=== PATIENT | male | born 1955 | race Caucasian/White ===

== ENCOUNTER 2019-08-23 06:09 | Inpatient (IN) | payer OTHER, BC ==
[2019-08-19 17:11] VITALS: BMI 24.7
[2019-08-23] MEDS ORDERED: CEFAZOLIN 2 GM in DEXTROSE 5%-WATER - 100 ML IVPB ONE (06:55)
[2019-08-23] MEDS ORDERED: fentaNYL CITRATE 250 MCG/5 ML VIAL ONE (07:24)
[2019-08-23] MEDS ORDERED: MIDAZOLAM HCL 2 MG/2 ML SINGLE DOSE VIAL ONE ×2 (07:24)
[2019-08-23] MEDS ORDERED: PROPOFOL 20 ML ONE ×3 (07:27)
[2019-08-23] MEDS ORDERED: LIDOCAINE HCL/PF 2% SDV 5ML VIAL ONE (07:27)
[2019-08-23] MEDS ORDERED: LIDOCAINE HCL 2% JELLY (5 ML/TUBE) ONE (07:27)
[2019-08-23] MEDS ORDERED: ONDANSETRON 4 MG/2 ML VIAL ONE ×2 (07:28→12:25)
[2019-08-23] MEDS ORDERED: DEXAMETHASONE SOD PHOSPHATE 4 MG/1 ML VIAL ONE (07:28)
[2019-08-23] MEDS ORDERED: NEOSTIGMINE METHYLSULFATE 0.5 MG/1 ML - 10 ML MDV ONE ×2 (07:28)
[2019-08-23] MEDS ORDERED: BUPIVACAINE HCL/PF 0.5% (5 MG/ML) 30 ML VIAL IJ ONE ×2 (07:37→09:26)
[2019-08-23] MEDS ORDERED: BUPIVACAINE LIPOSOME/PF (EXPAREL) 266 MG/20 ML VIAL ONE ×2 (07:37→09:26)
[2019-08-23] MEDS ORDERED: VANCOMYCIN 1,000 MG VIAL (RESTRICTED TO ID ONLY) ONE (07:43)
[2019-08-23] MEDS ORDERED: GENTAMICIN SO4 80 MG/2 ML VIAL ONE (07:43)
[2019-08-23] MEDS ORDERED: LIDOCAINE 1%-EPI 1:100,000 30 ML MDV IJ ONE (07:43)
[2019-08-23] MEDS ORDERED: THROMBIN (BOVINE) 20,000 UNIT VIAL TP ONE (07:44)
--- NOTE | 2019-08-23 07:57 | HP ---
History & Physical Update - History History: No Change - Physical Physical: No Change - Assessment Assessment: No Change - Plan Plan: No Change (no changes since visit on 07/05/19)
[2019-08-23] MEDS ORDERED: morphine SULFATE/PF 0.5 MG/ML (2cc Syringe - QUVA) ONE (08:06)
[2019-08-23] MEDS ORDERED: VANCOMYCIN 1,000 MG VIAL (RESTRICTED TO ID ONLY) IVPB ONE ×2 (08:40→10:19)
[2019-08-23] MEDS ORDERED: ceFAZolin SODIUM 1 GM VIAL IVPB ONE (08:40)
[2019-08-23] MEDS ORDERED: LIDOCAINE 1%/EPI 1:100000 (50 ML MULTI DOSE VIAL) NR ONE (08:51)
[2019-08-23] MEDS ORDERED: GELATIN, ABSORBABLE 100 EACH SPONGE TP ONE (09:10)
[2019-08-23] MEDS ORDERED: THROMBIN (BOVINE) 5,000 UNIT VIAL TP ONE (09:10)
[2019-08-23] MEDS ORDERED: GENTAMICIN SO4 80 MG/2 ML VIAL IVPB ONE (10:12)
[2019-08-23] MEDS ORDERED: BACITRACIN 50,000 UNITS VIAL TP ONE ×2 (10:12→10:19)
[2019-08-23] MEDS ORDERED: HYDROGEN PEROXIDE 473 ML PO ONE (10:12)
[2019-08-23] MEDS ORDERED: HYDROmorphone HCl 2 MG/ML VIAL ONE (12:21)
[2019-08-23] MEDS ORDERED: GLYCOPYRROLATE 0.2 MG/1 ML VIAL ONE ×3 (12:24→12:25)
[2019-08-23] MEDS ORDERED: diphenhydrAMINE HCL 25 MG CAPSULE (FP) PO PRN (13:13)
--- NOTE | 2019-08-23 13:52 | OP ---
Operative Note - Note: Operative Date: 08/23/19 Pre-Operative Diagnosis: lumbar stenosis and instability Operation: L4-S1 laminectomies (Reoperative L5-S1) with trenapedicular approaches for interbody cages and arthordesis with L4-S1 posterior fusion. Post-Operative Diagnosis: Same as Pre-op Surgeon: Prem Ford Assistant Operator: Brittany Rodríguez Anesthesiologist/POTASH FLAKER: Nayana Butler Anesthesia: General, Spinal (duramorph), Local Estimated Blood Loss (mls): 800 Drains & Tubes with Location: GEMMA at right paravetebral Drains, Volume Out (mls): 350 (hart) Fluid Volume Replaced (mls): 2,000 Operative Report Dictated: Yes
[2019-08-23] MEDS ORDERED: DOCUSATE SODIUM 100 MG CAPSULE (FP) PO SCH (14:00)
[2019-08-23] MEDS ORDERED: PROMETHAZINE HCL 25 MG/1 ML VIAL ONE (14:00)
[2019-08-23] MEDS ORDERED: HYDROmorphone HCL 2 MG TABLET PO PRN (14:13)
[2019-08-23] MEDS ORDERED: ONDANSETRON 4 MG/2 ML VIAL IVPUSH PRN (14:13)
[2019-08-23] MEDS ORDERED: PROMETHAZINE HCL 25 MG/1 ML VIAL IVPUSH ONE (14:15)
[2019-08-23] MEDS: LACTATED RINGERS SOLUTION 1,000 ML/1,000 ML INFUS.BAG IV SCH (14:30)
[2019-08-23 17:06] LABS: BASO % 0.2 % (0-2.0); HEMATOCRIT 36.4 % (35.4-49); HEMOGLOBIN 12.8 GM/dL (11.7-16.9); LYMPH % 5.4 % (8-40); MCH 31.2 pg (25.7-33.7); MCHC 35.1 g/dl (32.0-35.9); MEAN CELL VOLUME 88.9 fl (80-96); MEAN PLT VOLUME 8.1 fl (7.5-11.1); NEUT % 88.4 % (42.8-82.8); PLATELET COUNT 199 K/MM3 (134-434); RBC 4.09 M/mm3 (4.00-5.60); RDW 13.7 % (11.9-15.9); WHITE BLOOD COUNT 15.9 K/mm3 (4.0-10.0)
[2019-08-23] MEDS ORDERED: CEFAZOLIN 1 GM/D5W 1 GM/50 ML BAG IVPB SCH (17:30)
[2019-08-23] MEDS: INSULIN SLIDING SCALE (NOVOLOG) 1 VIAL SQ SCH (17:43)
[2019-08-23] MEDS ORDERED: INSULIN (NOVOLOG) ASPART 100 UNITS/ML 10ML VIAL ONE ×4 (17:45→18:39)
[2019-08-23] MEDS ORDERED: ceFAZolin SODIUM 1 GM VIAL ONE (17:53)
[2019-08-23] MEDS ORDERED: DEXTROSE 5%-WATER - 50 ML IVPB ONE (17:53)
[2019-08-23] MEDS: CEFAZOLIN 1 GM in DEXTROSE 5%-WATER - 50 ML IVPB SCH (17:58)
[2019-08-23] MEDS: PREGABALIN 50 MG CAPSULE PO SCH ×2 (17:59→22:20)
[2019-08-23] MEDS: DOCUSATE SODIUM 100 MG CAPSULE (FP) PO SCH (22:19)
[2019-08-23] MEDS: metFORMIN HCL 500 MG TABLET (FP) PO SCH (22:19)
[2019-08-23] MEDS: EZETIMIBE 10 MG TABLET (FP) PO SCH (22:20)
[2019-08-23] MEDS: HEPARIN NA (PORCINE) 5,000 UNITS/ML 1ML VIAL SQ SCH (22:20)
[2019-08-23] MEDS: ATORVASTATIN CA 10 MG TABLET (FP) PO SCH (22:23)
[2019-08-24] MEDS ORDERED: DEXTROSE 5%-WATER - 50 ML IVPB ONE ×3 (02:37→16:17)
[2019-08-24] MEDS ORDERED: ceFAZolin SODIUM 1 GM VIAL ONE ×3 (02:37→16:17)
[2019-08-24] MEDS: CEFAZOLIN 1 GM in DEXTROSE 5%-WATER - 50 ML IVPB SCH ×3 (02:41→17:04)
[2019-08-24] MEDS: LACTATED RINGERS SOLUTION 1,000 ML/1,000 ML INFUS.BAG IV SCH ×3 (02:43→17:04)
[2019-08-24 06:07] LABS: HEMATOCRIT 32.3 % (35.4-49); HEMOGLOBIN 11.5 GM/dL (11.7-16.9); MCH 31.7 pg (25.7-33.7); MCHC 35.7 g/dl (32.0-35.9); MEAN CELL VOLUME 88.7 fl (80-96); MEAN PLT VOLUME 8.4 fl (7.5-11.1); PLATELET COUNT 207 K/MM3 (134-434); RBC 3.64 M/mm3 (4.00-5.60); RDW 13.9 % (11.9-15.9); WHITE BLOOD COUNT 17.8 K/mm3 (4.0-10.0)
[2019-08-24 06:29] LABS: CALCIUM 10.1 mg/dL (8.5-10.1); CREATININE 1.8 mg/dL (0.55-1.3); POTASSIUM 4.8 mmol/L (3.5-5.1)
[2019-08-24] MEDS: HEPARIN NA (PORCINE) 5,000 UNITS/ML 1ML VIAL SQ SCH ×3 (06:37→22:05)
[2019-08-24] MEDS: INSULIN SLIDING SCALE (NOVOLOG) 1 VIAL SQ SCH ×3 (06:38→17:04)
[2019-08-24] MEDS: PREGABALIN 50 MG CAPSULE PO SCH ×3 (06:53→22:04)
[2019-08-24] MEDS ORDERED: PT OWN MED DRAWER 7, Y5N ONE ×6 (07:32→16:17)
--- NOTE | 2019-08-24 08:19 | PN ---
Progress Note (short form) - Note Progress Note: NEUROSURGERY POD #1 s/p L4-S1 laminectomies (reoperative L5-S1) with transpedicular approaches for interbody cages and arthordesis with L4-S1 posterior fusion. Alert. Standing up in room with hands on joseph stands. States he been like like this for a couple of hours. Not because of back pain but due to urinary discomfort. Patient informs me that he has failed his trial of void three times since hart removed and had to be replaced. C/o of burning sensation to meatus. Most likely the urinary retention associated with Duramorph spinal administered prior too procedure. Dr. Reyes was notified and ordered a PSA. Other than that , states the back pain is controlled well. He has ambulated a little in his room. Denies and parasthesias, CP, palpitations, SOB or MACE. Last Vital Signs Temp Pulse Resp BP Pulse Ox 97.1 F L 120 H 22 H 96/71 100 08/24/19 05:00 08/24/19 07:40 08/24/19 07:40 08/24/19 07:40 08/24/19 07:00 TRENDS 08/23/19 08/23/19 08/24/19 15:53 15:56 07:05 GEMMA 60 200 Hart 300 400 CBC, BMP 08/24/19 05:20 08/24/19 05:20 PE Gen: mod discomfort due to urinary discomfort. Back: dressing c/d/i. no periwound erythema. no drainage. no hematoma Neuro: GMNVI bilat all extremities : hart to gravity (clear). No evidence of meatal injury indicating traumatic insertion LE: SCDs bilat Problem List - Problems (1) Lumbar spinal stenosis Assessment/Plan: POD #1 s/p L4-S1 laminectomies (Reoperative L5-S1) with trenapedicular approaches for interbody cages and arthordesis with L4-S1 posterior fusion. Difficulty voiding postop. Patient without h/o of BPH or voiding issues pre-op. Issue most likely attributed to pre-op duramorph spinal. GOALS FOR TODAY 1. OOB and ambulate w/ PT 2. Incentive Spirometer 3. Monitor/record GEMMA and Hart output 4. Possibly dc hart later this afternoon and attempt TOV - would hold off on obtaining Urology consult as retention most likely 2/2 spinal anasthesia and doens't have h/o urinary difficulty 5. Trend WBC (currently 17.6) 6. Finger Stick --> maintain tight glycemic control 7. Pain management per Anasthesia 8. IV ABX to cont while GEMMA drain remains in - most likely will be dc'd onrounds tomorrow 9. TLSO brace Above plan discussed with Dr. Ford and agrees Code(s): M48.061 - SPINAL STENOSIS, LUMBAR REGION WITHOUT NEUROGENIC SHELLEY (2) HTN (hypertension) Code(s): I10 - ESSENTIAL (PRIMARY) HYPERTENSION (3) Diabetes Code(s): E11.9 - TYPE 2 DIABETES MELLITUS WITHOUT COMPLICATIONS
[2019-08-24] MEDS ORDERED: TAMSULOSIN HCL 0.4 MG CAP PO SCH (08:30)
[2019-08-24] MEDS: metFORMIN HCL 500 MG TABLET (FP) PO SCH ×2 (09:08→22:09)
[2019-08-24] MEDS: FERROUS SO4 325 MG TABLET (FP) PO SCH (09:08)
[2019-08-24] MEDS: FOLIC ACID 1 MG TABLET (FP) PO SCH (09:08)
[2019-08-24] MEDS: DOCUSATE SODIUM 100 MG CAPSULE (FP) PO SCH ×3 (09:08→22:02)
[2019-08-24] MEDS: BETHANECHOL CHLORIDE 25 MG TABLET PO SCH ×3 (09:30→22:03)
[2019-08-24] MEDS: LISINOPRIL 5 MG TABLET (FP) PO SCH (09:36)
[2019-08-24] MEDS ORDERED: PATIENT'S OWN MEDICATION (NON-FORMULARY) (Dapagliflozin Propanediol [Farxiga] 5 MG) PO SCH (10:00)
[2019-08-24] MEDS ORDERED: PHENAZOPYRIDINE HCL 100 MG TABLET (FP) PO ONE (10:45)
[2019-08-24] MEDS ORDERED: INSULIN (NOVOLOG) ASPART 100 UNITS/ML 10ML VIAL ONE (10:55)
--- NOTE | 2019-08-24 14:22 | CONSULT ---
Consult Consult Specialty:: fam med - History of Present Illness Chief Complaint: asked to see pt f/u medicaly c/o inability to urinate bladder scan 500 cc foly cath. than no urination again we left foly in put him on flomax urocholine vtid. c/o excruciating penis pain took foly out feels better blader scan no vol in bladder - History Source History Provided By: Patient Limitations to Obtaining History: No Limitations (laminectomy rt wrist sx and dev septum nose) - Alcohol/Substance Use Hx Alcohol Use: No History of Substance Use: reports: None - Smoking History Smoking history: Never smoked - Social History Usual Living Arrangement: With Spouse History of Recent Travel: No Home Medications - Allergies Allergies/Adverse Reactions: Allergies Allergy/AdvReac Type Severity Reaction Status Date / Time oxycodone [From Percocet] Allergy Severe Difficulty Verified 08/24/19 12:26 Breathing - Home Medications Home Medications: Ambulatory Orders Cholecalciferol (Vitamin D3) [Vitamin D3 -] 1,000 unit PO DAILY 08/19/19 Cyanocobalamin (Vitamin B-12) [Vitamin B-12] 1,000 mcg PO DAILY 08/19/19 Dapagliflozin Propanediol [Farxiga] 5 mg PO DAILY 08/19/19 Ezetimibe/Simvastatin [Vytorin 10-10 mg Tablet] 1 tab PO DAILY 08/19/19 Lisinopril 5 mg PO DAILY 08/19/19 Metformin HCl [Glucophage] 1,000 mg PO BID 08/19/19 Pregabalin [Lyrica -] 50 mg PO TID 08/19/19 Sitagliptin Phosphate [Januvia -] 100 mg PO DAILY@0700 08/19/19 Family Medical History Family History: Unremarkable Review of Systems - Review of Systems Constitutional: reports: Other (penile pain scale 10) Eyes: reports: No Symptoms HENT: reports: No Symptoms Neck: reports: No Symptoms Cardiovascular: reports: No Symptoms Respiratory: reports: No Symptoms Gastrointestinal: reports: No Symptoms Genitourinary: reports: Pain Breasts: reports: No Symptoms Reported Musculoskeletal: reports: No Symptoms Integumentary: reports: No Symptoms Neurological: reports: No Symptoms Endocrine: reports: No Symptoms Hematology/Lymphatic: reports: No Symptoms Psychiatric: reports: No Symptoms Physical Exam Vital Signs: Vital Signs Temperature 98.6 F 08/24/19 14:00 Pulse Rate 123 H 08/24/19 14:00 Respiratory Rate 22 H 08/24/19 14:00 Blood Pressure 122/60 08/24/19 14:00 O2 Sat by Pulse Oximetry (%) 100 08/24/19 07:00 Constitutional: Yes: Moderate Distress Eyes: Yes: WNL HENT: Yes: WNL Neck: Yes: WNL Respiratory: Yes: WNL Gastrointestinal: Yes: WNL, Normal Bowel Sounds ...Rectal Exam: Yes: Deferred Renal/: Yes: Other (foly out now) Breast(s): Yes: WNL Musculoskeletal: Yes: Back Pain Extremities: Yes: WNL Edema: No Integumentary: Yes: WNL Wound/Incision: Yes: Clean/Dry Neurological: Yes: WNL ...Motor Strength: WNL Psychiatric: Yes: WNL Labs: CBC, BMP 08/24/19 05:20 08/24/19 05:20 Assessment/Plan tylenol 1 gram iv q 6 prn miralax po urocholin flomax pantoprazol topical lidocain penis psa pnd chk labs in am gu f/u
[2019-08-24] MEDS ORDERED: ACETAMINOPHEN 1000 MG/100 ML VIAL (NON FORMULARY) IVPB PRN (14:26)
[2019-08-24] MEDS ORDERED: LIDOCAINE HCL 2% JELLY (5 ML/TUBE) TP ONE (15:15)
[2019-08-24] MEDS: ATORVASTATIN CA 10 MG TABLET (FP) PO SCH (22:02)
[2019-08-24] MEDS: EZETIMIBE 10 MG TABLET (FP) PO SCH (22:13)
[2019-08-25] MEDS ORDERED: ceFAZolin SODIUM 1 GM VIAL ONE ×2 (01:36→09:44)
[2019-08-25] MEDS ORDERED: DEXTROSE 5%-WATER - 50 ML IVPB ONE ×2 (01:36→09:44)
[2019-08-25] MEDS: CEFAZOLIN 1 GM in DEXTROSE 5%-WATER - 50 ML IVPB SCH ×2 (01:44→09:51)
[2019-08-25 02:59] VITALS: TEMP 98.2
[2019-08-25] MEDS: BETHANECHOL CHLORIDE 25 MG TABLET PO SCH (05:22)
[2019-08-25] MEDS: PREGABALIN 50 MG CAPSULE PO SCH (05:22)
[2019-08-25] MEDS: HEPARIN NA (PORCINE) 5,000 UNITS/ML 1ML VIAL SQ SCH (05:23)
[2019-08-25] MEDS: INSULIN SLIDING SCALE (NOVOLOG) 1 VIAL SQ SCH ×2 (06:49→12:22)
--- NOTE | 2019-08-25 07:56 | PN ---
Progress Note (short form) - Note Progress Note: 64yo M s/p L4-S1 PLIF seen and examined at bedside. Pt states that he has been urinating well all night. Pt states back pain is controlled and is anxious to go home. Pt denies fever, chills, n/v, LE weakness or numbness. Vital Signs Temp 98.2 F 08/25/19 02:00 Pulse 99 H 08/25/19 02:00 Resp 18 08/25/19 02:00 BP 113/66 08/24/19 20:00 Pulse Ox 100 08/24/19 20:48 Intake & Output 08/24/19 08/24/19 08/25/19 11:59 23:59 11:59 Intake Total 2550 Output Total 1000 2020 650 Balance -1000 530 -650 Intake: IV 1250 LACTATED RINGERS SOLUTION 1250 1,000 ml In 1,000 ml @ 125 mls/hr IV ASDIR ABA Rx#:[id number] IVPB 300 Oral 1000 Output: Drainage 200 120 Back 200 120 Urine 800 1900 650 Martinez 400 450 Straight Cath 400 Void 1450 650 Other: Voiding Method Indwelling Catheter Indwelling Catheter CBC, BMP 08/24/19 05:20 08/24/19 05:20 PE; Gen: A&O X3 REsp: breathing comfortably Back: incision clean with no erythema or discharge, drain in place with serosanguinous drainage. Ext: no edema, weakness, numbness. Problem List - Problems (1) Lumbar spinal stenosis Assessment/Plan: Plan -pt appears to be doing well, will plan to remove drain and discharge later today. -pt should follow up with Dr. Ford, in 2 weeks as outpatient Pt discussed with Dr. Ford, who agrees with plan Code(s): M48.061 - SPINAL STENOSIS, LUMBAR REGION WITHOUT NEUROGENIC SHELLEY
[2019-08-25] MEDS: metFORMIN HCL 500 MG TABLET (FP) PO SCH (09:50)
[2019-08-25] MEDS: FOLIC ACID 1 MG TABLET (FP) PO SCH (09:50)
[2019-08-25] MEDS: FERROUS SO4 325 MG TABLET (FP) PO SCH (09:50)
[2019-08-25] MEDS: LISINOPRIL 5 MG TABLET (FP) PO SCH (09:50)
[2019-08-25] MEDS: DOCUSATE SODIUM 100 MG CAPSULE (FP) PO SCH (09:51)
[2019-08-25] MEDS ORDERED: PANTOPRAZOLE 40 MG TABLET (FP) PO SCH (10:00)
[2019-08-25] MEDS ORDERED: POLYETHYLENE GLYCOL 3350 119 GM BTL PO SCH (10:00)
[2019-08-25 10:03] VITALS: BP 115/65; PULSE 79
--- NOTE | 2019-08-25 11:09 | PN ---
Progress Note, Physician History of Present Illness: pt urinating good now without pain vss cr level high wbc elevated nuerosx clered for d/c - Current Medication List Current Medications: Active Medications Acetaminophen (Ofirmev Injection -) 1,000 mg IVPB Q6H PRN PRN Reason: FEVER Last Admin: 08/24/19 14:38 Dose: 1,000 mg Atorvastatin Calcium (Lipitor -) 10 mg PO [facility] Last Admin: 08/24/19 22:02 Dose: 10 mg Bethanechol Chloride (Urecholine -) 50 mg PO TID [facility] Last Admin: 08/25/19 05:22 Dose: 50 mg Diphenhydramine HCl (Benadryl -) 25 mg PO Q6H PRN PRN Reason: FOR ITCHING Docusate Sodium (Colace -) 300 mg PO [facility] Last Admin: 08/24/19 22:02 Dose: 300 mg Docusate Sodium (Colace -) 100 mg PO BID@1000,1400 [facility] Last Admin: 08/25/19 09:51 Dose: 100 mg Ezetimibe (Zetia -) 10 mg PO [facility] Last Admin: 08/24/19 22:13 Dose: 10 mg Fentanyl (Sublimaze Injection -) 50 mcg IVPUSH [id number] PRN PRN Reason: PAIN-PACU ORDER X 4 DOSES ONLY Ferrous Sulfate (Feosol -) 325 mg PO DAILY [facility] Last Admin: 08/25/19 09:50 Dose: Not Given Folic Acid (Folic Acid -) 1 mg PO DAILY [facility] Last Admin: 08/25/19 09:50 Dose: Not Given Heparin Sodium (Porcine) (Heparin -) 5,000 unit SQ TID [facility] Last Admin: 08/25/19 05:23 Dose: Not Given Hydromorphone HCl (Dilaudid -) 2 mg PO Q4HWA PRN PRN Reason: PAIN LEVEL 4 - 6 Last Admin: 08/24/19 07:33 Dose: 2 mg Hydromorphone HCl (Dilaudid -) 4 mg PO Q4H PRN PRN Reason: PAIN LEVEL 7 - 10 Last Admin: 08/25/19 09:56 Dose: 4 mg Lactated Ringer's (Lactated Ringers Solution) 1,000 ml in 1,000 mls @ 125 mls/ hr IV ASDIR [facility] Last Admin: 08/24/19 17:04 Dose: 125 mls/hr Cefazolin Sodium 1 gm/ (Dextrose) 50 mls @ 100 mls/hr IVPB Q8H-IV [facility] Last Admin: 08/25/19 09:51 Dose: 100 mls/hr Insulin Aspart (Novolog Vial Sliding Scale -) 1 vial SQ TIDAC [facility]; Protocol Last Admin: 08/25/19 06:49 Dose: Not Given Lisinopril (Prinivil) 5 mg PO DAILY [facility] Last Admin: 08/25/19 09:50 Dose: Not Given Metformin HCl (Glucophage -) 1,000 mg PO BID [facility] Last Admin: 08/25/19 09:50 Dose: Not Given Non-Formulary Medication (Dapagliflozin Propanediol [Farxiga]) 5 mg PO DAILY [facility] Ondansetron HCl (Zofran Injection) 4 mg IVPUSH Q6H PRN PRN Reason: NAUSEA AND/OR VOMITING Last Admin: 08/23/19 17:56 Dose: 4 mg Pantoprazole Sodium (Protonix -) 40 mg PO DAILY [facility] Last Admin: 08/25/19 09:51 Dose: 40 mg Polyethylene Glycol (Miralax (For Daily Use) -) 17 gm PO DAILY [facility] Pregabalin (Lyrica -) 50 mg PO TID [facility] Last Admin: 08/25/19 05:22 Dose: 50 mg Sitagliptin Phosphate (Januvia -) 100 mg PO DAILY@0700 [facility] Last Admin: 08/25/19 06:52 Dose: Not Given - Objective Vital Signs: Vital Signs Temperature 98.2 F 08/25/19 02:00 Pulse Rate 79 08/25/19 10:02 Respiratory Rate 20 08/25/19 10:02 Blood Pressure 115/65 08/25/19 10:02 O2 Sat by Pulse Oximetry (%) 100 08/25/19 09:00 Constitutional: Yes: No Distress Eyes: Yes: WNL HENT: Yes: WNL Neck: Yes: WNL Cardiovascular: Yes: WNL Respiratory: Yes: WNL Gastrointestinal: Yes: WNL ...Rectal Exam: Yes: Deferred Genitourinary: Yes: WNL Breast(s): Yes: WNL Musculoskeletal: Yes: Other (j p drain intact) Extremities: Yes: WNL Edema: No Peripheral Pulses WNL: Yes Integumentary: Yes: WNL Wound/Incision: Yes: Clean/Dry Neurological: Yes: WNL ...Motor Strength: WNL Labs: CBC, BMP 08/24/19 05:20 08/24/19 05:20 Assessment/Plan cbc basic stat rn will call me if cr and wbc better than ok to d/c spoke to neurosx awaiting drain to be out by padma eugene
[2019-08-25 11:33] LABS: BASO % 0.9 % (0-2.0); EOS % 0.2 % (0-4.5); HEMOGLOBIN 9.4 GM/dL (11.7-16.9); LYMPH % 11.7 % (8-40); MCH 32.1 pg (25.7-33.7); MCHC 36.1 g/dl (32.0-35.9); MEAN CELL VOLUME 88.8 fl (80-96); MEAN PLT VOLUME 8.2 fl (7.5-11.1); NEUT % 78.2 % (42.8-82.8); PLATELET COUNT 132 K/MM3 (134-434); RBC 2.92 M/mm3 (4.00-5.60); RDW 13.4 % (11.9-15.9); WHITE BLOOD COUNT 8.8 K/mm3 (4.0-10.0)
[2019-08-25 12:00] LABS: BLOOD UREA NITROGEN 17.6 mg/dL (7-18); CALCIUM 9.4 mg/dL (8.5-10.1); POTASSIUM 4.1 mmol/L (3.5-5.1)
--- NOTE | 2019-08-26 13:42 | DS ---
Physical Exam: SUBJECTIVE: Patient seen and examined OBJECTIVE: Vital Signs Temperature 98.2 F 08/25/19 02:00 Pulse Rate 79 08/25/19 10:02 Respiratory Rate 20 08/25/19 10:02 Blood Pressure 115/65 08/25/19 10:02 O2 Sat by Pulse Oximetry (%) 100 08/25/19 09:00 PHYSICAL EXAM GENERAL: The patient is awake, alert, and fully oriented, in no acute distress. HEAD: Normal with no signs of trauma. EYES: PERRL, extraocular movements intact, sclera anicteric, conjunctiva clear. NECK: Trachea midline, full range of motion, supple. BACK: Lumbar incision is clean with no erythema or discharge, drain in place with serousanguinous drainage (removed at bedside) LUNGS: breathing comfortably, no accessory muscle use. EXTREMITIES: 2+ pulses, warm, well-perfused, no edema. No weakness or numbness NEUROLOGICAL: Cranial nerves II through XII grossly intact. Normal speech, gait not observed. PSYCH: Normal mood, normal affect. SKIN: Warm, dry, normal turgor, no rashes or lesions noted. LABS CBC,CMP WBC 8.8 K/mm3 (4.0-10.0) 08/25/19 11:00 RBC 2.92 M/mm3 (4.00-5.60) L 08/25/19 11:00 Hgb 9.4 GM/dL (11.7-16.9) L 08/25/19 11:00 Hct 26.0 % (35.4-49) L D 08/25/19 11:00 MCV 88.8 fl (80-96) 08/25/19 11:00 MCH 32.1 pg (25.7-33.7) 08/25/19 11:00 MCHC 36.1 g/dl (32.0-35.9) H 08/25/19 11:00 RDW 13.4 % (11.9-15.9) 08/25/19 11:00 Plt Count 132 K/MM3 (134-434) L D 08/25/19 11:00 MPV 8.2 fl (7.5-11.1) 08/25/19 11:00 Absolute Neuts (auto) 6.9 K/mm3 (1.5-8.0) 08/25/19 11:00 Neutrophils % 78.2 % (42.8-82.8) 08/25/19 11:00 Lymphocytes % 11.7 % (8-40) D 08/25/19 11:00 Monocytes % 9.0 % (3.8-10.2) 08/25/19 11:00 Eosinophils % 0.2 % (0-4.5) D 08/25/19 11:00 Basophils % 0.9 % (0-2.0) D 08/25/19 11:00 Nucleated RBC % 0 % (0-0) 08/25/19 11:00 Sodium 135 mmol/L (136-145) L 08/25/19 11:00 Potassium 4.1 mmol/L (3.5-5.1) 08/25/19 11:00 Chloride 100 mmol/L (98-107) 08/25/19 11:00 Carbon Dioxide 27 mmol/L (21-32) 08/25/19 11:00 Anion Gap 8 MMOL/L (8-16) 08/25/19 11:00 BUN 17.6 mg/dL (7-18) 08/25/19 11:00 Creatinine 1.0 mg/dL (0.55-1.3) 08/25/19 11:00 Est GFR (CKD-EPI)AfAm 93.08 08/25/19 11:00 Est GFR (CKD-EPI)NonAf 80.31 08/25/19 11:00 POC Glucometer 203 UNITS (80-120) 08/24/19 21:18 Random Glucose 176 mg/dL (74-106) H 08/25/19 11:00 Calcium 9.4 mg/dL (8.5-10.1) 08/25/19 11:00 Prostate Specific Ag 3.80 ng/ml (0.0-4.0) 08/24/19 05:20 HOSPITAL COURSE: Date of Admission:08/23/19 Date of Discharge: 08/25/19 The patient was admitted to the Med-Surg Unit after an elective repair of their Lumbar spondylosis. Now, s/p L4-S1 posterior fusion. The day of surgery, the patient ambulated the hallways with assistance. Narcotic and non-narcotic pain management control was achieved with an oral and IV approach. POD #2, the surgical drain was removed fully intact and without incident. An CT lumbar was obtained and confirmed hardware placement at L4-S1, no fractures or dislocations. Amanda-operative IV ABX were administered. DVT prophylaxis was achieved with SCDs and early ambulation. The patient ambulated with Physical Therapy and no services were recommended upon discharge. Narcotic scripts and or muscle relaxants were checked with [facility] [employer]ID[employer] APPRENTICE prior to escibe. The discharge instructions and an oral pain management plan were reviewed with the patient. All questions answered. Above plan discussed with Dr. Ford and agreed. Minutes to complete discharge: 20 Visit type - Case Type Case Type: Scheduled - Emergency Emergency Visit: No - New patient This patient is new to me today: Yes Date on this admission: 08/26/19 - Critical Care Critical Care patient: No
--- NOTE | 2019-08-31 12:35 | SURG ---
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 For further detail, please refer to operative report. Visit type - Case Type Case Type: Scheduled - Emergency Emergency Visit: No - New patient This patient is new to me today: Yes Date on this admission: 08/23/19
== END 2019-08-25 13:21 | disposition home or self-care (01) | DRG 455 ==
LOC: JSAMEDAYSX 06:09 → J2W 15:12
PROVIDERS: ADMIT Family Medicine; ATTEND Family Medicine
PROC: 0SG0071 Fusion of Lumbar Vertebral Joint with Autologous Tissue Substitute, Posterior Approach, Posterior Column, Open Approach (ICD-10-PCS; 2019-08-23)
PROC: 0SB20ZZ Excision of Lumbar Vertebral Disc, Open Approach (ICD-10-PCS; 2019-08-23)
PROC: 0SG30AJ Fusion of Lumbosacral Joint with Interbody Fusion Device, Posterior Approach, Anterior Column, Open Approach (ICD-10-PCS; 2019-08-23)
PROC: 0SG3071 Fusion of Lumbosacral Joint with Autologous Tissue Substitute, Posterior Approach, Posterior Column, Open Approach (ICD-10-PCS; 2019-08-23)
PROC: 0SB40ZZ Excision of Lumbosacral Disc, Open Approach (ICD-10-PCS; 2019-08-23)
PROC: 0JX70ZZ Transfer Back Subcutaneous Tissue and Fascia, Open Approach (ICD-10-PCS; 2019-08-23)
PROC: B01BZZZ Fluoroscopy of Spinal Cord (ICD-10-PCS; 2019-08-23)
PROC: 0SG00AJ Fusion of Lumbar Vertebral Joint with Interbody Fusion Device, Posterior Approach, Anterior Column, Open Approach (ICD-10-PCS; principal; 2019-08-23 08:00)
DX: M48.061 Spinal stenosis, lumbar region without neurogenic claudication (principal); M48.07 Spinal stenosis, lumbosacral region; M51.26 Other intervertebral disc displacement, lumbar region; M41.86 Other forms of scoliosis, lumbar region; M51.27 Other intervertebral disc displacement, lumbosacral region; M12.9 Arthropathy, unspecified; I10 Essential (primary) hypertension; E11.9 Type 2 diabetes mellitus without complications
CPT/HCPCS: 36415; 72131-TC; 76000-TC-FY; 80048; 82947; 82962; 84153; 85025; 85027; 86850; 86900; 86901; 94010; 94760; 97116-GP; 97162-GP; J0131; J1644